=== PATIENT | male | born 1945 | race Caucasian/White ===

== ENCOUNTER → 2017-07-23 | Outpatient (CLI) | payer MEDICARE, BC | LOC: COL.RAD 07-17 12:30 | DX: H91.8X1 Other specified hearing loss, right ear (principal) | CPT/HCPCS: A9585 ==

== ENCOUNTER 2020-01-03 11:39 | Inpatient (IN) | payer MEDICARE, BC ==
[~2020-01-03] VITALS: Ht 180.3 cm; Wt 82.7 kg
[2020-01-03 12:21] LABS: HEMATOCRIT 47.9 % (42.0-52.0); HEMOGLOBIN 16.8 g/dl (13.5-18.0); MEAN CELL VOLUME 91 fl (80.0-100.0); MEAN CORPUSCULAR HEMOGLOBIN 32 pg (27.0-31.0); MEAN CORPUSCULAR HGB CONC 35 g/dl (33.0-37.0); MEAN PLATELET VOLUME 10.3 fl (7.4-10.4); PLATELET COUNT 288 K/mm3 (130-400); RED BLOOD COUNT 5.28 M/mm3 (4.20-5.60); REDCELL DISTRIBUTION WIDTH-CV 12.8 % (11.5-14.5)
[2020-01-03 12:27] LABS: ALANINE AMINOTRANSFERASE 31 U/L (4-49); ALBUMIN 4.8 gm/dL (3.5-5.0); ALKALINE PHOSPHATASE 82 U/L (50-136); ANION GAP 11 mmol/L (7-16); AST,SGOT 48 U/L (15-37); BILIRUBIN,TOTAL 0.8 mg/dL (0.0-1.0); BLOOD UREA NITROGEN 23 mg/dL (9-20); CALCIUM 9.7 mg/dL (8.4-10.2); CARBON DIOXIDE 26 mmol/L (22-30); CHLORIDE 103 mmol/L (98-107); CREATININE, serum 0.89 (0.66-1.25); GLUCOSE 193 mg/dL (74-106); LIPASE 72 U/L (23-300); POTASSIUM 3.9 mmol/L (3.4-5.0); SODIUM 139 mmol/L (137-145); TOTAL PROTEIN 8.1 gm/dL (6.4-8.2)
[2020-01-03 12:41] LABS: TROPONIN-I < 0.012 ng/mL (0.000-0.035)
[2020-01-03 14:08] LABS: BAND 4 % (0-10); LYMPHOCYTE 10 % (20.0-51.0); NEUTROPHILS 85 % (42.0-75.2); PLATELET ESTIMATE NORMAL (NORMAL)
--- NOTE | 2020-01-03 18:12 | NUR ---
Patient to room [address] Pierre notified of admission, orders received.
[2020-01-03] MEDS ORDERED: HCTZ12.5TAB PO (19:16)
[2020-01-03] MEDS ORDERED: COZAAR 50MG50 MG/TAB PO (19:16)
[2020-01-03] MEDS ORDERED: TENEX2 MG PO (19:16)
[2020-01-03] MEDS ORDERED: ZYLOPRIM 300MG300 MG PO (19:17)
[2020-01-03 19:21] VITALS: BP 143/62; PULSE 62; TEMP 99.8
[2020-01-03 23:24] VITALS: BP 132/74; PULSE 69; TEMP 100.2
[2020-01-04 04:50] VITALS: BP 126/74; PULSE 73; TEMP 99.6
--- NOTE | 2020-01-04 06:25 | NUR ---
PT IN BED. DILAUDID AND MORPHINE FOR PAIN. MOST OF PT'S PAIN IS MID UPPER EPIGASTRIC.
[2020-01-04 07:23] LABS: HEMATOCRIT 44.8 % (42.0-52.0); HEMOGLOBIN 15.6 g/dl (13.5-18.0); MEAN CELL VOLUME 93 fl (80.0-100.0); MEAN CORPUSCULAR HEMOGLOBIN 32 pg (27.0-31.0); MEAN CORPUSCULAR HGB CONC 35 g/dl (33.0-37.0); MEAN PLATELET VOLUME 10.3 fl (7.4-10.4); PLATELET COUNT 266 K/mm3 (130-400); RED BLOOD COUNT 4.83 M/mm3 (4.20-5.60); REDCELL DISTRIBUTION WIDTH-CV 13.2 % (11.5-14.5)
[2020-01-04 07:33] LABS: ALBUMIN 4.1 gm/dL (3.5-5.0); BILIRUBIN,TOTAL 1.3 mg/dL (0.0-1.0); CALCIUM 8.4 mg/dL (8.4-10.2); CREATININE, serum 0.89 (0.66-1.25); POTASSIUM 3.5 mmol/L (3.4-5.0)
[2020-01-04 08:00] VITALS: BP 109/58; PULSE 61; TEMP 99.8
[2020-01-04 08:40] LABS: BAND 19 % (0-10); BASOPHIL 1 % (0-2); LYMPHOCYTE 3 % (20.0-51.0); NEUTROPHILS 73 % (42.0-75.2); PLATELET ESTIMATE NORMAL (NORMAL)
--- NOTE | 2020-01-04 10:01 | NUR ---
Dr Pierre here to see patient.
[2020-01-04 12:00] VITALS: BP 110/65; PULSE 57; TEMP 99.1
[2020-01-04 15:08] VITALS: BP 119/59; PULSE 56; TEMP 98
[2020-01-04 20:25] VITALS: BP 129/66; PULSE 62; TEMP 99.1
[2020-01-05] VITALS (7 sets, daily range): BP systolic 112–146; BP diastolic 61–84; PULSE 48–66; TEMP 98.3–98.9
--- NOTE | 2020-01-05 04:47 | NUR ---
PT IN BED. ALTERNATING DILAUDID AND MORPHINE FOR ABDOMINAL PAIN. PT STATES PAIN IS SLIGHTLY BETTER BUT STILL VERY UNCOMFORTABLE.PT HAS BEEN NAUSEATED OFF AND ON THROUGH THE NIGHT.
[2020-01-05 06:54] LABS: BASO # 0.1 (0.0-0.2); BASO % 0.3 % (0.0-2.0); GRAN # 16.9 (1.4-6.5); GRAN % 86.2 % (42.2-75.2); HEMATOCRIT 38.6 % (42.0-52.0); LYMPH # 1.1 (1.2-3.4); LYMPH % 5.8 % (20.0-51.0); MEAN CELL VOLUME 94 fl (80.0-100.0); MEAN CORPUSCULAR HEMOGLOBIN 32 pg (27.0-31.0); MEAN CORPUSCULAR HGB CONC 35 g/dl (33.0-37.0); MEAN PLATELET VOLUME 10.4 fl (7.4-10.4); MONO # 1.4 (0.1-0.6); MONO % 6.9 % (1.7-9.3); PLATELET COUNT 203 K/mm3 (130-400); RED BLOOD COUNT 4.12 M/mm3 (4.20-5.60); REDCELL DISTRIBUTION WIDTH-CV 13.2 % (11.5-14.5)
[2020-01-05 06:56] LABS: HEMOGLOBIN 13.3 g/dl (13.5-18.0)
[2020-01-05 07:04] LABS: ALBUMIN 3.3 gm/dL (3.5-5.0); BILIRUBIN,TOTAL 1.2 mg/dL (0.0-1.0); CALCIUM 7.8 mg/dL (8.4-10.2); CREATININE, serum 0.84 (0.66-1.25); POTASSIUM 3.4 mmol/L (3.4-5.0)
--- NOTE | 2020-01-05 08:00 | NUR ---
PT A&O. VSS. PT COMPLAING OF ABD PAIN AND REQUESTING PAIN MEDS. SCHEDULED FOR ULTASOUND LATER TODAY. PT RECIEVING D5NS @100/HR INTO R AC. PT ON CLEAR DIET BUT REPORTS EPISODES OF N/V. NO OTHER COMPLAINTS. SITTING COMFORTABLY IN BED. CALL LIGHT IN REACH.
--- NOTE | 2020-01-05 11:28 | NUR ---
MILAN met with the patient and his , Gloria (ph#[phone]), to discuss discharge plan. The patient lives in [place] with his . Gloria reports that he is independent with ADLs and does not have any DME. The patient's PCP is Dr. Malvin Jaramillo and he receives his medications from [facility]. Gloria reports no difficulties obtaining his meds. The patient does not have a DPOA-HC in EMR, but the patient reports that he does have one completed and that his is his DPOA-HC. The patient plans to return home with his upon discharge. No additional needs at this time.
--- NOTE | 2020-01-05 19:05 | NUR ---
Received report from Ana Cristina and RN student. Pt currently sitting up in bed and has his at his bedside. Pt has his call light within reach
--- NOTE | 2020-01-05 23:45 | NUR ---
Pt was having pain which her was rating at a 8 or higher. Pt was given Ultram at that time. Pt was beginning to have pain again while doing hourly rounds. Pt was given Noro at that time and was informed that due to his scan in the morning that after midnight he was not able to have any narcotics after midnight. Pt stated that he was aware and that he would let me know if he needed anything else for pain. Pt has his call light within reach.
[2020-01-06] VITALS (13 sets, daily range): BP systolic 112–160; BP diastolic 65–84; PULSE 46–71; TEMP 98–98.3
--- NOTE | 2020-01-06 03:13 | NUR ---
Pt had some complaints of pain. Pt stated that it was very bad. Dr. Martines was contacted at this time because the pt requested Tylenol for pain since he is have his HIDA scan this morning. Dr. Martines ordered 650mg of Tylenol PRN Q6hr. Pt was given pain medication at this time and pt was also given Zofran at this time for nausea. Pt has his call light within reach .
--- NOTE | 2020-01-06 07:47 | NUR ---
Pt is currently down have a Hida scan. Pt was contacted at this time because she wanted me to give her an update.
--- NOTE | 2020-01-06 09:30 | NUR ---
PT A&O. VSS. HEAD TO TOE DONE, SEE NOTES. PT WAS NPO FOR HIDASCAN SO MORNING MEDS WERE HELD. MEDS GIVEN AT THIS TIME. PT COMPLAINS OF PAIN, GAVE PRN NARCOTIC. REQUEST WARM WASH CLOTHES BEFORE SURGERY TO CLEAN SELF. NO OTHER COMPLAINTS. PT LAYING IN BED. CALL LIGHT IN REACH.
[2020-01-06 10:15] LABS: BASO % 0.2 % (0.0-2.0); EOS % 0.1 % (0-4.0); GRAN # 14.7 (1.4-6.5); GRAN % 85.8 % (42.2-75.2); HEMATOCRIT 44.2 % (42.0-52.0); MEAN CELL VOLUME 91 fl (80.0-100.0); MEAN CORPUSCULAR HEMOGLOBIN 32 pg (27.0-31.0); MEAN CORPUSCULAR HGB CONC 35 g/dl (33.0-37.0); MEAN PLATELET VOLUME 10.6 fl (7.4-10.4); MONO # 1.3 (0.1-0.6); MONO % 7.3 % (1.7-9.3); PLATELET COUNT 212 K/mm3 (130-400); RED BLOOD COUNT 4.85 M/mm3 (4.20-5.60); REDCELL DISTRIBUTION WIDTH-CV 12.7 % (11.5-14.5)
[2020-01-06 10:17] LABS: HEMOGLOBIN 15.6 g/dl (13.5-18.0)
[2020-01-06 10:22] LABS: BILIRUBIN,TOTAL 1.1 mg/dL (0.0-1.0); CALCIUM 8.5 mg/dL (8.4-10.2); CREATININE, serum 0.69 (0.66-1.25); POTASSIUM 3.3 mmol/L (3.4-5.0); TOTAL PROTEIN 7.2 gm/dL (6.4-8.2)
--- NOTE | 2020-01-06 12:15 | NUR ---
PATIENT GOING DOWN TO OR VIA BED. CONSENT ON CHART.
--- NOTE | 2020-01-06 14:26 | NUR ---
Several visit attempts; Repair Miller left 'Prayer Card' and information regarding the availability of spiritual care at our hospital.
--- NOTE | 2020-01-06 14:36 | NUR ---
PT BACK IN ROOM POSTOP. VSS. PT DROWSY. ABD LAP SITES X4 CD&I. PT COMPLAINED OF NAUSEA IN OR, GIVEN NAUSEA MED IN PACU. EMESIS BASIN AT BED SIDE. PT RESTING IN BED. CALL LIGHT IN REACH. LIGHT TURNED DOWN.
--- NOTE | 2020-01-06 21:31 | NUR ---
PT AWAKE, ALERT AND ORIENTED X3. WAS NOT SURE OF TIME OF DAY, REORIENTS EASILY. HAS SL TO RT AC, FLUSHES WELL, IV PEPCID GIVEN. TAKES TYLENOL FOR ABD DISCOMFORT. HAS LAP SITES X4 WITH DRY BANDAIDS NOTED. INDEPENDENT IN ROOM.
--- NOTE | 2020-01-06 23:52 | NUR ---
REPORTS CONTINUED DISCOMFORT TO ABDOMEN, 3/10, GIVEN NORCO 1 TAB AT THIS TIME.
--- NOTE | 2020-01-07 04:00 | NUR ---
DENIES NEEDS. HAS CPAP ON.
[2020-01-07 04:25] VITALS: BP 120/69; PULSE 56; TEMP 98.1
--- NOTE | 2020-01-07 06:15 | NUR ---
MEDICATED WITH NORCO 1 TAB PO FOR PAIN IN ABDOMEN.
[2020-01-07 06:27] LABS: BASO % 0.1 % (0.0-2.0); GRAN # 11.1 (1.4-6.5); GRAN % 88.9 % (42.2-75.2); HEMATOCRIT 39.2 % (42.0-52.0); HEMOGLOBIN 13.8 g/dl (13.5-18.0); LYMPH # 0.7 (1.2-3.4); LYMPH % 5.5 % (20.0-51.0); MEAN CELL VOLUME 90 fl (80.0-100.0); MEAN CORPUSCULAR HEMOGLOBIN 32 pg (27.0-31.0); MEAN CORPUSCULAR HGB CONC 35 g/dl (33.0-37.0); MEAN PLATELET VOLUME 10.7 fl (7.4-10.4); MONO # 0.6 (0.1-0.6); MONO % 4.9 % (1.7-9.3); PLATELET COUNT 242 K/mm3 (130-400); RED BLOOD COUNT 4.36 M/mm3 (4.20-5.60); REDCELL DISTRIBUTION WIDTH-CV 12.6 % (11.5-14.5)
[2020-01-07 06:36] LABS: ALBUMIN 3.4 gm/dL (3.5-5.0); BILIRUBIN,TOTAL 0.7 mg/dL (0.0-1.0); CALCIUM 8.3 mg/dL (8.4-10.2); CREATININE, serum 0.8 (0.66-1.25); POTASSIUM 3.5 mmol/L (3.4-5.0); TOTAL PROTEIN 6.2 gm/dL (6.4-8.2)
[2020-01-07 08:08] VITALS: BP 107/67; PULSE 53; TEMP 97.7
[2020-01-07] MEDS ORDERED: ULTRAM 50MG TAB50 MG PO (09:44)
[2020-01-07] MEDS ORDERED: LEVAQUIN 5500 MG/TA1 PO (09:44)
--- NOTE | 2020-01-07 11:00 | NUR ---
PATIENT DISCHARGING HOME VIA AMBULATORY TO PERSONAL VEHICLE WHERE IS WAITING. GAVE DISCHARGE INSTRUCTIONS, SCRIPTS SENT ELECTRONICALLY, AND DISCUSSED F/U APT. ANSWERED ALL QUESTIONS/CONCERNS. STUDENT NURSE DC'D IV SITE, COVERED WITH YUN & VERÓNICA. PATIENT PACKED PERSONAL BELONGINGS. PATIENT DISCHARGED.
--- NOTE | 2020-01-07 11:09 | NUR ---
PT IS A&O. VSS. HEAD TO TOE ASSESSMENT DONE, SEE NOTES. OBSERVED LAP SITES X4, COVERED WITH BANDAIDS, CD&I. DR IN ROOM ANSWERING ALL PT QUESTIONS. PT STATES FEELING MUCH BETTER, READY TO GO HOME. PT STATES NOT EATING MUCH BUT UNDERSTAND WILL TAKE TIME. NO OTHER COMPLAINTS. SITTING IN BED DRESSED WAITING DISCHARGE. CALL LIGHT IN REACH.
== END 2020-01-07 11:00 | disposition home or self-care (01) | DRG 419 ==
LOC: COL.ER 11:39 → SURG 16:25
PROVIDERS: Emergency Medicine; ADMIT Surgery
PROC: 0FT44ZZ Resection of Gallbladder, Percutaneous Endoscopic Approach (ICD-10-PCS; principal; 2020-01-06 12:30)
DX: K81.0 Acute cholecystitis (principal); I10 Essential (primary) hypertension; Z20.828 Contact with and (suspected) exposure to other viral communicable diseases
CPT/HCPCS: A9537; G0378; J0360; J1170; J1956; J2270; J2405; J2550; J2710; J3010; J7030; J7042; Q9967

== ENCOUNTER → 2022-10-19 | Outpatient (CLI) | payer MEDICARE, BC ==
[~2022-10-19] MED LIST: COZAAR 50MG50 MG/TAB PO; HCTZ12.5TAB PO; LEVAQUIN 5500 MG/TA1 PO; NORCO 325 MG-51 TAB PO; PYRIDIUM 100MG100 MG PO; TENEX2 MG PO; ULTRAM 50MG TAB50 MG PO; ZYLOPRIM 300MG300 MG PO
== END ==
LOC: DIA.ED 04:54
DX: E11.9 Type 2 diabetes mellitus without complications (principal); I10 Essential (primary) hypertension
CPT/HCPCS: G0108

== ENCOUNTER 2023-09-21 17:44 | Emergency (ER) | payer MEDICARE, BC ==
[~2023-09-21] VITALS: Ht 180.3 cm; Wt 76.8 kg
[2023-09-21 17:48] VITALS: TEMP 98.4
[2023-09-21 18:30] LABS: BASO # 0.1 K/mm3 (0.0-0.2); BASO % 0.7 % (0.0-2.0); EOS # 0.1 K/mm3 (0.0-0.7); GRAN # 5.7 K/mm3 (1.4-6.5); GRAN % 62.4 % (42.2-75.2); LYMPH # 2.4 K/mm3 (1.2-3.4); LYMPH % 25.9 % (20.0-51.0); MEAN CELL VOLUME 91 fl (80.0-100.0); MEAN CORPUSCULAR HEMOGLOBIN 32 pg (27-31); MEAN CORPUSCULAR HGB CONC 35 g/dl (33.0-37.0); MEAN PLATELET VOLUME 10.6 fl (7.4-10.4); MONO # 0.9 K/mm3 (0.1-0.6); MONO % 9.6 % (1.7-9.3); PLATELET COUNT 304 K/mm3 (130-400); RED BLOOD COUNT 5.27 M/mm3 (4.20-5.60)
[2023-09-21 19:19] LABS: ALBUMIN 3.6 g/dL (3.4-4.8); BILIRUBIN,TOTAL 0.4 mg/dL (0.2-1.2); CALCIUM 9.3 mg/dL (8.4-10.2); CREATININE, serum 1.28 mg/dL (0.72-1.25); POTASSIUM 3.9 mEq/L (3.5-4.5); TROPONIN-I 0.01 ng/mL (0.00-0.033)
[2023-09-21] MEDS ORDERED: Iohexol 300 - 100 ML VIAL IV ONE (19:44)
[2023-09-21] MEDS ORDERED: NS 50 ML IV ONE (19:47)
[2023-09-21] MEDS ORDERED: NS 1,000 ML IV ONE (20:15)
[2023-09-21] MEDS ORDERED: Insulin Regular Human (NovoLIN R/HumuLIN R) IV ONE (20:15)
[2023-09-21 21:20] VITALS: BP 133/106; PULSE 89
== END 2023-09-21 21:20 | disposition home or self-care (01) ==
LOC: COL.ER 17:44
PROVIDERS: Physician Assistant
DX: R06.02 Shortness of breath (principal); R00.2 Palpitations; E11.65 Type 2 diabetes mellitus with hyperglycemia
CPT/HCPCS: J1815; J7030; Q9967